=== PATIENT | male | born 1980 | race Caucasian/White ===

== ENCOUNTER 2023-04-08 07:56 | Emergency (ER) | payer OTHER ==
[~2023-04-08] VITALS: Ht 172.7 cm; Wt 113.4 kg
[2023-04-08 08:43] LABS: HEMATOCRIT 45.8 % (39.0-48.0); HEMOGLOBIN 16.3 g/dL (13-16.00); MEAN CELL VOLUME 83.7 fL (80.0-100.00); MEAN CORPUSCULAR HEMOGLOBIN 29.7 pg (27.00-32.0); MEAN CORPUSCULAR HGB CONC 35.5 g/dl (32.0-36.0); PLATELET COUNT 201 K/uL (150-450); RED BLOOD COUNT 5.47 M/uL (4.00-6.00); RED CELL DISTRIBUTION WIDTH 13.1 % (11.5-14.5)
[2023-04-08 09:35] LABS: ALBUMIN 3.9 gm/dL (3.4-5.0); BILIRUBIN TOTAL 2.22 mg/dL (0.3-1.2); BILIRUBIN,CONJUGATED 0.68 mg/dL (0.0-0.2); BILIRUBIN,UNCONJUGATED 1.54 mg/dL (0.0-0.6); CALCIUM 9.2 mg/dL (8.5-10.1); CREATININE SERUM 1.3 mg/dL (0.70-1.30); GFR 59.7; POTASSIUM 3.69 mEq/L (3.5-5.1); TOTAL PROTEIN 8.1 gm/dL (6.4-8.2)
[2023-04-08 10:44] LABS: URINE APPEARANCE Clear; URINE BILIRRUBIN Negative (NEGATIVE); URINE BLOOD Small; URINE COLOR Yellow; URINE LEUKOCYTE Negative; URINE NITRATE Negative
[2023-04-08 10:45] LABS: URINE BACTERIA 497.6 uL (0.0-1933); URINE EPITHELIAL CELLS 14.5 uL (0.0-38.8); URINE RBC 22.9 uL (0.0-20.8); URINE WBC 149.6 uL (0.0-23.2)
[2023-04-08 11:29] LABS: URINE GLUCOSE >=1000 MG/DL (NEGATIVE); URINE PROTEIN 100 (NEGATIVE)
[2023-04-08 11:30] LABS: URINE YEAST FEW /hpf
== END 2023-04-08 19:07 | disposition designated cancer center or children's hospital (05) ==
LOC: ER 07:56
PROVIDERS: General Practice
DX: N49.3 Fournier gangrene (principal); E11.65 Type 2 diabetes mellitus with hyperglycemia; Z20.822 Contact with and (suspected) exposure to COVID-19; N49.2 Inflammatory disorders of scrotum; I10 Essential (primary) hypertension; E78.00 Pure hypercholesterolemia, unspecified